=== PATIENT | female | born 1955 | race Caucasian/White ===

== ENCOUNTER 2022-05-03 06:24 | Observation (INO) ==
--- NOTE | 2022-03-18 11:46 | PAT Medication Instructions ---
Medication Instructions Date of Service March 18, 2022 Home Medications adalimumab 40 mg/0.8 mL subcutaneous pen kit (Humira Pen) 40 mg subcut UD aspirin 81 mg capsule 81 mg PO Q OTHER DAY celecoxib 200 mg capsule (Celebrex) 200 mg PO HS cholecalciferol (vitamin D3) 50 mcg (2,000 unit) tablet (Vitamin D3) 6,000 unit PO QAM clonazepam 0.5 mg tablet (Klonopin) 1 mg PO HS levothyroxine 75 mcg tablet 75 mcg PO QAM methylphenidate HCl 15 mg capsule,extended release (40-60) sprinkle 15 mg PO BID multivitamin 1 tab PO QAM omeprazole 20 mg capsule,delayed release 20 mg PO QAM simvastatin 10 mg tablet 10 mg PO HS sulfasalazine 500 mg tablet 2,000 mg PO BID venlafaxine 225 mg tablet,extended release 24 hr 225 mg PO QAM Continue as directed aspirin 81 mg capsule 81 mg PO Q OTHER DAY (unless directed otherwise by surg tiny) ASK your surgeon for instructions celecoxib 200 mg capsule (Celebrex) 200 mg PO HS ASK your prescriber and surgeon adalimumab 40 mg/0.8 mL subcutaneous pen kit (Humira Pen) 40 mg subcut UD sulfasalazine 500 mg tablet 2,000 mg PO BID DO NOT take the morning of surgery cholecalciferol (vitamin D3) 50 mcg (2,000 unit) tablet (Vitamin D3) 6,000 unit PO QAM methylphenidate HCl 15 mg capsule,extended release (40-60) sprinkle 15 mg PO BID multivitamin 1 tab PO QAM Take morning of surgery With a small sip of water, OTHERWISE NOTHING TO EAT OR DRINK AFTER MIDNIGHT: levothyroxine 75 mcg tablet 75 mcg PO QAM omeprazole 20 mg capsule,delayed release 20 mg PO QAM venlafaxine 225 mg tablet,extended release 24 hr 225 mg PO QAM Take evening before surgery clonazepam 0.5 mg tablet (Klonopin) 1 mg PO HS methylphenidate HCl 15 mg capsule,extended release (40-60) sprinkle 15 mg PO BID simvastatin 10 mg tablet 10 mg PO HS Other Notes If you have any questions please call us at [phone] or [phone] or [phone] or [phone]
--- NOTE | 2022-03-28 13:30 | Anesthesiology Consultation ---
Date of Service March 28, 2022 Assessment & Plan (1) Encounter for pre-operative examination: - Patient acceptable risk for surgery pending surgeon-ordered PCP preop evaluation (Dr. Vinnie Alexander/Lonny, scheduled 04/05). - COVID screening: Per assessment on 03/28: No known COVID-19 positive contacts or current COVID-19 related symptoms. Travel screen negative. Patient vaccinated. At surgeon discretion if preop Covid testing being done. - Outpatient joint assessment: Pt currently scheduled for inpatient pathway. If surgeon requests review for outpatient joint pathway, patient is acceptable candidate for outpatient joint program from anesthesia standpoint pending surgeon's office assessment of pt motivation/support/completion of same day joint program preop requirements. Chart Review Chart Review: Patient seen in Pre Admission Testing Teaching & Discussion Pre-Anesthesia Teaching/Discussion Notes: Instructed NPO after midnight before surgery,except medications with 15 cc of water. Medication instructions provided according to the PAT guidelines. History Surgery Operation Date: 05/03/22 07:15 Proposed Procedures p Left Total Knee Arthroplasty - Ad Parker DO Height/Weight Height: 5 ft 2 in Weight: 59.6 kg Allergies Allergy/AdvReac Type Severity Reaction Status Date / Time No Known Allergies Allergy Verified 03/18/22 10:48 Medications Home Medications Medication Instructions Recorded Confirmed Last Taken aspirin 81 mg capsule 81 mg PO Q OTHER DAY 03/18/22 03/18/22 Unknown celecoxib 200 mg capsule (Celebrex) 200 mg PO HS 03/18/22 03/18/22 Unknown cholecalciferol (vitamin D3) 50 6,000 unit PO QAM 03/18/22 03/18/22 Unknown mcg (2,000 unit) tablet (Vitamin D3) clonazepam 0.5 mg tablet (Klonopin) 1 mg PO HS 03/18/22 03/18/22 Unknown levothyroxine 75 mcg tablet 75 mcg PO QAM 03/18/22 03/18/22 Unknown methylphenidate HCl 15 mg 15 mg PO BID 03/18/22 03/18/22 Unknown capsule,extended release (40-60) sprinkle multivitamin 1 tab PO QAM 03/18/22 03/18/22 Unknown omeprazole 20 mg capsule,delayed 20 mg PO QAM 03/18/22 03/18/22 Unknown release simvastatin 10 mg tablet 10 mg PO HS 03/18/22 03/18/22 Unknown sulfasalazine 500 mg tablet 2,000 mg PO BID 03/18/22 03/18/22 Unknown venlafaxine 225 mg tablet,extended 225 mg PO QAM 03/18/22 03/18/22 Unknown release 24 hr Past Medical History Medical History Acid reflux Ankylosing spondylitis Possible (no evidence on recent MRI) Reason for sulfasalazine Anxiety Chronic back pain Depression History of COVID-19 Dx 08/16/21 (home test), mild symptoms at time > resolved Hyperlipidemia Hypothyroidism Ileostomy in place Osteoarthritis Exercise / Class Metabolic Activity II 4-5 Yardwork/Stairs/Walk up hill Past Family History Family History Other No family history of adverse response to anesthesia Past Surgical History Surgical History History of arthroscopy of left knee History of arthroscopy of right knee History of benign breast biopsy left History of carpal tunnel release of both wrists History of section x2 History of colonoscopy History of fusion of cervical spine ~2004 History of tonsillectomy and adenoidectomy History of tooth extraction all upper teeth removed History of total colectomy d/t accident (~2017) History of total hysterectomy with bilateral salpingo-oophorectomy (BSO) Nausea and vomiting after administration of anesthetic agent Status post biopsy of thyroid gland benign Status post ileostomy ~2018 Past Anesthesia History No Hx of Anesthesia Complications (except PONV) Son- "Belligerent" with anesthesia History of PONV No Hx of Motion Sickness and History of PONV Social History Smoking Status: Former smoker Do You Dip or Chew Tobacco: No Smoking End Date: Quit Hx Alcohol Use: Yes Alcohol type: other alcohol intake frequency: holidays/special occasions only Alcohol Intake Frequency Comment: "[place] just on vacation" Hx Substance Use: No substance use type: does not use Review of Systems Patient denies chest pain, shortness of breath, dyspnea on exertion, fever, chills, cough, wheezing. Hx palpitations. Physical Exam Vital Signs VITALS BP 119/75 P 74 TEMP 98.6 SP02 96%RA RESP 16 PHYSICAL Full cervical extension range of motion. Full TMJ range of motion. TMD 3.5 finger breaths Mallampati Score 1 Dentition: full upper dentures Lungs: clear throughout to auscultation Cardiac: regular rate and rhythm with occasional extra beat, no murmurs noted Spine: normal Carotid arteries: negative bruit Extremities: no edema Lab Results Anesthesia Preop Results Results Anesthesia Widget: WBC 7.67 K/ul (4.8-10.8) 03/28/22 Hgb 13.6 g/dl (12.0-16.0) 03/28/22 Hct 41.3 % (34.1-44.9) 03/28/22 Plt 325 K/uL (130-400) 03/28/22 Na 142 mmol/L (136-145) 03/28/22 K 4.3 mmol/L (3.5-5.1) 03/28/22 Cl 106 mmol/L (98-107) 03/28/22 CO2 30 mmol/L (21-32) 03/28/22 BUN 14 mg/dl (6-23) 03/28/22 Creat 0.66 mg/dl (0.6-1.2) 03/28/22 Glucose Level 89 mg/dl (70-99(Fasting)) 03/28/22 PT 10.7 Seconds (9.0-12.0) 03/28/22 PTT 23.7 Seconds (21.0-31.0) 03/28/22 INR 1.0 (0.9-1.1) 03/28/22 Urine Color Dark Yellow 03/28/22 Urine Appearance Clear (Clear) 03/28/22 Urine pH 5.5 (4.5-7.5) 03/28/22 Urine Specific [place] 1.017 (1.000-1.030) 03/28/22 Urine Protein Negative (Negative) 03/28/22 Urine Glucose (UA) Negative (Negative) 03/28/22 Urine Ketones Negative (Negative) 03/28/22 Urine Blood Negative (Negative) 03/28/22 Urine Nitrite Negative (Negative) 03/28/22 Urine Bilirubin Negative (Negative) 03/28/22 Urine Urobilinogen Negative (Negative) 03/28/22 Urine Leukocyte Esterase Negative (Negative) 03/28/22 Blood Type A Positive 03/28/22 Antibody Screen NEGATIVE 03/28/22 Testing Electrocardiogram Date: 03/28/22 NSR at 72bpm. Normal ECG. Chest X-Ray Date: 03/28/22 FINDINGS: Lung volumes are normal. No consolidation to suggest pneumonia. Linear left basilar density represents atelectasis or scarring. There is no pneumothorax or pleural effusion. Cardiac size is normal. Mediastinal contours are normal. There is no evidence for pulmonary edema. Postoperative findings within the cervical spine are incidentally noted. IMPRESSION: No acute cardiopulmonary findings. COVID-19 Risk Screen Screening Information COVID-19 Screen Date: 03/28/22 Exposure 21 Days Family/Household +COVID Last 21 Days: No Exposure 10 Days Any COVID Exposure Last 10 Days: No Symptoms Last 10 Days Experienced COVID Sx Last 10 Days: No + COVID 0-90 Days COVID + in Last 0-90 Days: No
--- NOTE | 2022-04-15 12:52 | History & Physical Report ---
Date of Service April 15, 2022 date of surgery: 05/03/22 Procedure: Left Total Knee Arthroplasty Surgeon: Ad Parker Assessment & Plan (1) Arthritis of knee, left: Plan: Risks and benefits of procedure discussed in detail today, patient would like to proceed with a left total knee replacement at [facility] as scheduled. will obtain medical clearance prior to surgery as well as obtain PATs at [facility]. Will place on ASA 81mg po bid x 1 month post op, f/u 2 weeks post op for routine post-operative care and x-ray, sooner if having any problems. will make arrangements for HHPT at the time of discharge. At this point in time, has failed conservative measures and would like to proceed with surgical intervention. The risks and benefits have been discussed including, but not limited to, risk of infection, nerve injury, stiffness, loss of motion, failure to improve, etc. Reasonable outcomes and options of treatment were discussed. An explanation of appropriate alternatives to the procedure that may be advantageous were discussed and their risks and benefits, as well as the risks and benefits of not proceeding with treatment. I offered to answer any additional inquiries concerning the treatment involved. All the patient's questions were answered. The patient is agreeable, understanding of the treatment plan and alternatives, and wishes to proceed with the treatment plan. History of Present Illness Chief Complaint: left knee pain Primary Care Provider: NO PCP Melody is a 66 year old female who complains of left knee pain, presents for pre-op evaluation prior to a left total knee replacement by Dr Parker at [facility]. she complains of pain, decreased range of motion, instability and stiffness in his left knee. Currently the patient states that the symptoms are moderate- severe. The pain is described as aching, sharp and throbbing. The symptoms occur continuously. The symptoms are aggravated by ascending stairs, daily activities, first steps while awake walking. Prior NSAIDs include Celebrex, IBU and Aleve. she has been treated with previous visco injections in the past without much relief. she has also tried medrol dose verenice. Allergies Allergy/AdvReac Type Severity Reaction Status Date / Time No Known Allergies Allergy Verified 03/18/22 10:48 Home Medications Medication Instructions Recorded Confirmed Type aspirin 81 mg capsule 81 mg PO Q OTHER DAY 03/18/22 03/18/22 History celecoxib 200 mg capsule (Celebrex) 200 mg PO HS 03/18/22 03/18/22 History cholecalciferol (vitamin D3) 50 6,000 unit PO QAM 03/18/22 03/18/22 History mcg (2,000 unit) tablet (Vitamin D3) clonazepam 0.5 mg tablet (Klonopin) 1 mg PO HS 03/18/22 03/18/22 History levothyroxine 75 mcg tablet 75 mcg PO QAM 03/18/22 03/18/22 History methylphenidate HCl 15 mg 15 mg PO BID 03/18/22 03/18/22 History capsule,extended release (40-60) sprinkle multivitamin 1 tab PO QAM 03/18/22 03/18/22 History omeprazole 20 mg capsule,delayed 20 mg PO QAM 03/18/22 03/18/22 History release simvastatin 10 mg tablet 10 mg PO HS 03/18/22 03/18/22 History sulfasalazine 500 mg tablet 2,000 mg PO BID 03/18/22 03/18/22 History venlafaxine 225 mg tablet,extended 225 mg PO QAM 03/18/22 03/18/22 History release 24 hr Past Med/Surg History Medical History Acid reflux Ankylosing spondylitis Possible (no evidence on recent MRI) Reason for sulfasalazine Anxiety Chronic back pain Depression History of COVID-19 Dx 08/16/21 (home test), mild symptoms at time > resolved Hyperlipidemia Hypothyroidism Ileostomy in place Osteoarthritis Surgical History History of arthroscopy of left knee History of arthroscopy of right knee History of benign breast biopsy left History of carpal tunnel release of both wrists History of section x2 History of colonoscopy History of fusion of cervical spine ~2004 History of tonsillectomy and adenoidectomy History of tooth extraction all upper teeth removed History of total colectomy d/t accident (~2017) History of total hysterectomy with bilateral salpingo-oophorectomy (BSO) Nausea and vomiting after administration of anesthetic agent Status post biopsy of thyroid gland benign Status post ileostomy ~2017 Family History Other No family history of adverse response to anesthesia Social History Smoking Status: Former smoker Second Hand Exposure: No; Hx Alcohol Use: Yes Alcohol type: other Hx Substance Use: No Preferred Language: [place]ib[place] Communication Ability: Effective 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 Beliefs That Will Affect Care: None Current Living Situation: Spouse Feels Safe at Home: Yes Assistive Devices: Denture - Upper and Glasses Review of Systems Review of Systems: All systems reviewed & are unremarkable except as noted in HPI & below Constitutional: no fever, no chills and no sweats Respiratory: no cough and no dyspnea Cardiovascular: no chest pain, no dyspnea and no orthopnea Gastrointestinal: no abdominal pain, no nausea and no vomiting Musculoskeletal: as per Subjective / HPI Physical Exam Constitutional: WD/WN, vitals as above no acute distress Respiratory: normal respiratory effort, lungs clear to auscultation no respiratory distress, no labored breathing and does not use accessory muscles Cardiovascular: RRR, no murmur, no edema Gastrointestinal (Abdomen): normal bowel sounds, soft, nontender, no hepatosplenomegaly Musculoskeletal: Knee: + knee abnormal to inspection (left knee), + effusion (+1 effusion), + limited ROM of knee (ROM 0/3/110), + knee ROM with crepitation, + joint line tenderness (medial joint line) and + Maira's sign positive; no deformity, no skin erythema, no ecchymosis, no valgus laxity, no varus laxity, anterior drawer test negative, Ham's sign negative and pivot shift test negative Results & Data Results & Data ([facility]) Diagnostic Findings Left Knee X-ray: left knee series confirm degenerative changes to the left knee, greatest medial compartments and patellofemoral joint, showing joint space narrowing, osteophyte formation and subchondral sclerosis. no acute bony pathology noted.
[~2022-05-03 06:24] MED LIST: ACETAMINOPHEN 500 MG TAB PO SCH; CeleBREX 200 MG CAP PO SCH; FAMOTIDINE 20 MG TAB PO SCH; GABAPENTIN 600 MG DOSE PO SCH; LR 500ML BOLUS, THEN 15ML/HR IV SCH; METOCLOPRAMIDE HCL 10 MG TABLET PO SCH; PROPOFOL IV EMULSION 10 MG/ML 20 ML VIAL IV ONE; ROPIVACAINE 0.5% HCL/PF 150 MG, BUPIVACAINE 0.75% MPF 20 ML, EPINEPHrine 30MG/30ML (OR ... INFIL SCH; TRANEXAMIC ACID 1,000 MG **IV Intra-op IV SCH; TRANEXAMIC ACID 1,000 MG **IV Pre-op IV SCH; ceFAZolin 1000MG 1,000 MG/7.5 ML SYR IV SCH; dexAMETHasone 4 MG TAB PO SCH
[2022-05-03] MEDS ORDERED: MEPIVACAINE HCL 1.5% 30 ML VIAL ONE (06:29)
[2022-05-03] MEDS ORDERED: EPINEPHrine INJ 1 MG/ML AMP ONE (06:29)
[2022-05-03] MEDS ORDERED: ROPIVACAINE 0.5% 5 MG/ML 30 ML VIAL ONE (06:29)
--- NOTE | 2022-05-03 07:18 | History & Physical Bridge Note ---
Date of Service May 03, 2022 History & Physical Bridge Note I have examined the patient, reviewed the History & Physical and in the interval since the performance of the History & Physical I have noted the following changes of clinical significance: no changes noted
[2022-05-03] MEDS ORDERED: fentaNYL citrate 100 MCG/2 ML VIAL ONE ×2 (07:19→08:36)
[2022-05-03] MEDS ORDERED: fentaNYL citrate 100 MCG/2 ML VIAL IV PRN (07:19)
[2022-05-03] MEDS ORDERED: MEPERIDINE HCL 25 MG/ML CARP/VIAL IV PRN (07:19)
[2022-05-03] MEDS ORDERED: ePHEDrine sulfate 50 MG/ML AMP IV PRN (07:19)
[2022-05-03] MEDS ORDERED: LABETALOL HCL IV 5 MG/ML 20ML IV PRN (07:19)
[2022-05-03] MEDS ORDERED: ONDANSETRON INJ 2 MG/ML 2 ML VIAL IV PRN ×3 (07:19→15:23)
[2022-05-03] MEDS ORDERED: ATROPINE SULFATE 0.1 MG/ML 10ML SYR IV PRN (07:19)
[2022-05-03] MEDS ORDERED: HYDROmorphone INJ 1 MG/ML SYRINGE IV PRN (07:19)
[2022-05-03] MEDS ORDERED: PHENYLEPHRINE 100MCG/ML 5ML SYR IV PRN (07:19)
[2022-05-03] MEDS ORDERED: MIDAZOLAM HCL 1 MG/ML 2ML VIAL ONE (07:19)
[2022-05-03] MEDS ORDERED: PROPOFOL IV EMULSION 10 MG/ML 100 ML VIAL IV ONE (07:25)
[2022-05-03] MEDS ORDERED: ORTHO JOINT ANESTHETIC ONE (08:24)
[2022-05-03] MEDS ORDERED: DEXAMETHASONE SOD INJ 4 MG/ML VIAL ONE (08:34)
[2022-05-03] MEDS ORDERED: ONDANSETRON INJ 2 MG/ML 2 ML VIAL ONE (08:34)
[2022-05-03] MEDS ORDERED: KETAMINE 50 MG/5 ML SYRINGE ONE (08:35)
--- NOTE | 2022-05-03 09:31 | Operative Report ---
Post Operative Report Pre & Post Diagnosis Operation Date: 05/03/22 08:25 Pre-Op Diagnosis: Arthritis of left knee Post-Op Diagnosis: Arthritis of left knee I identified the patient and participated in the time-out.: Yes Procedure Operation Date: 05/03/22 08:25 Actual Procedures p Left Total Knee Arthroplasty(Left) utilizing [employer] 2 patient matched total knee arthroplasty size femur for left tibia 3 left poly-10 mm patella 32 deysi- Ad Parker DO Surgeon Ad Parker DO Mailing Specialist Bruno DIXON Estimated Blood Loss 5 Findings Consistent with Post-Op Diagnosis Patient presents with severe end-stage tricompartmental degenerative joint disease left knee no response to conservative management patient has eburnated [id number] subchondral cystic changes marginal osteophytes varus alignment flexion contracture moderate to large effusion Specimens Bone and cartilage Drains Medium bore Hemovac Anesthesia Type MAC Spinal Regional Complications none Disposition Accompanied Patient To Recovery: No Disposition: Recovery Room Indications Patient presents with severe end-stage DJD failed attempted conservative management clinic physical therapy anti-inflammatories relative rest activity modification corticosteroid injection viscosupplementation the above intraoperative findings were noted Description of Procedure After proper prepping and draping of the left lower extremity anterior midline incision was made over the region of the extensor extensor mechanism after meticulous hemostasis was obtained and maintained in subcutaneous tissues a medial parapatellar incision was made The patella was subluxed lateralward the medial lateral gutter were cleaned from any hypertrophic synovitis and scar tissue of the distal femoral block was placed and the distal femoral osteotomy cut was made subsequently the chamfers anterior and posterior osteotomy cuts were made utilizing the 4-in-1 block the tibia was subsequently subluxed anteriorward medial and ateral meniscal remnants were excised in their entirety remnants of the anterior and posterior cruciate ligaments were excised in their entirety excellent exposure of the proximal tibia was obtained the tibial osteotomy guide was placed on the proximal tibial osteotomy cut was made once again the knee was irrigated with copious amounts of sterile saline solution the patella was subsequently everted lateralward thickened scar tissue around the patella was removed the patella was subsequently cut utilizing a freehand technique and was drilled prepared for final preparation and placement of patella socially flexion-extension gaps were checked and the equal and symmetric trials were placed to the appropriate femoral and tibial trials with poly-spacer being placed for equal flexion and extension gaps and full range of motion including extension to 0 and flexion to 140 the trial components after having been taken to recovery range of motion was subsequently removed meticulous hemostasis was obtained and maintained subsequently a knee block injection of joint cocktail including ropivacaine 0.5% 150 mg. Bupivacaine 0.5% epinephrine 1-200,030 mL's toradol 30 mg dexamethasone 4 mg ketamine 10 mg clonidine 100 micrograms normal saline solution 30 mg was infiltrated into the soft tissues of the posterior knee medial lateral gutters and periosteal synovium special attention was paid to protect neurovascular structures at all times subsequently trial components having been removed the knee was irrigated with sterile saline solution. debris was removed the proximal tibia was subsequently prepared and was made ready for the placement of the tibial component tibial component was also cemented and tamped into position the femoral component was subsequently placed and cemented in the position the patellar component was subsequently cemented in position because hemostasis once again obtained and maintained wound having been thoroughly irrigated with debridement and debridement lavage was performed as well as a medial parapatellar incision closed with #1 Vicryl in interrupted fashion subcutaneous was closed with #2 Vicryl skin was closed with skin clips. PA-C was necessary for prepping and drapping as well as wound closure of deep fascia Sub cutaneous tissue and skin and was necessary for the case. A sterile compressive dressing was placed patient was taken to recovery in stable condition of report dictated by Keith I attest to the content of the Intraoperative Record and any orders documented therein. Any exceptions are noted below.Due to the complex nature of the procedure, the entire surgery was performed with the operational assistance of Bruno DIXON. The data analysis assistant, under direct supervision, was involved in the actual performance of all aspects of the surgical procedure including hemostasis, tissue retraction and incision, instrument management, patient positioning, and wound closure. I attest to the content of the Intraoperative Record and any orders documented therein. Any exceptions are noted below.
[2022-05-03] MEDS ORDERED: oxyCODONE HCL IR 5 MG TAB (IMMEDIATE RELEASE) PO PRN (10:10)
[2022-05-03] MEDS ORDERED: HYDROmorphone INJ 0.5 MG/0.5 ML SYR IV PRN ×2 (10:10→15:23)
[2022-05-03] MEDS ORDERED: METOPROLOL TARTRATE 1 MG/ML VIAL IV ONE (10:37)
--- NOTE | 2022-05-03 10:37 | XRay Report ---
TWO VIEWS LEFT KNEE CLINICAL HISTORY: Postoperative examination. FINDINGS: AP and crosstable lateral portable views of the left knee are obtained. A left knee arthrop lasty is in near anatomic alignment. There has been undersurface remodeling of the patella. No acute fracture is seen. There are expected postoperative changes around the knee including a surgical drain , soft tissue edema, and subcutaneous gas. IMPRESSION: Expected postoperative changes status post left knee arthroplasty. No acute fracture is s een. ACT 112: Negative or not required by law. Electronically signed by: Phil Ross M.D. 05/03/2022 10:36 AM
[2022-05-03] MEDS ORDERED: METOPROLOL TARTRATE 1 MG/ML VIAL IV STA (10:38)
--- NOTE | 2022-05-03 11:20 | Anesthesiology Progress Note ---
Date of Service May 03, 2022 Anesthesia Post Procedure Vital Signs Vital Signs: Temp Pulse Pulse Pulse Resp BP BP 05/03/22 11:10 37.0 C 82 20 128/74 05/03/22 11:00 92 H 22 122/70 05/03/22 10:50 85 24 133/84 05/03/22 10:40 112 H 141/81 H 05/03/22 10:40 112 H 19 141/81 H 05/03/22 10:30 116 H 17 141/83 H 05/03/22 10:20 109 H 16 136/82 05/03/22 10:13 36.2 C L 110 H 12 132/77 05/03/22 07:10 37.4 C 05/03/22 06:58 37.8 C H 80 18 142/83 H Pulse Ox O2 Del Method O2 Flow Rate 05/03/22 11:10 94 Nasal Cannula 3 05/03/22 11:00 96 Nasal Cannula 3 05/03/22 10:50 97 Oxymask 5 05/03/22 10:40 05/03/22 10:40 94 Oxymask 5 05/03/22 10:30 91 Oxymask 5 05/03/22 10:20 94 Oxymask 5 05/03/22 10:13 95 Oxymask 5 05/03/22 07:10 05/03/22 06:58 96 Room Air Pain Intensity Right Knee: Pain Intensity: 2 Transfer of Care Handoff Completed per policy Notes Mental Status: alert / awake / arousable Patient Amnestic to Procedure: Yes Nausea / Vomiting: adequately controlled Pain: adequately controlled Airway Patency, RR, SpO2: stable & adequate BP & HR: stable & adequate Hydration State: stable & adequate Anesthetic Complications: no major complications apparent and Pt Satisfied with anesthetic care
[2022-05-03] MEDS: oxyCODONE HCL IR 5 MG TAB (IMMEDIATE RELEASE) PO PRN ×2 (12:03→21:39)
[2022-05-03] MEDS ORDERED: DROPERIDOL 5 MG/2 ML VIAL IV STA (14:39)
[2022-05-03] MEDS ORDERED: diphenhydrAMINE 50 MG/ML VIAL IV PRN (15:23)
[2022-05-03] MEDS ORDERED: bisacodyL 10 MG SUPP PR PRN (15:23)
[2022-05-03] MEDS ORDERED: NALOXONE HCL 0.4 MG/1 ML VIAL/CARP IV PRN (15:23)
[2022-05-03] MEDS ORDERED: MAGNESIUM HYDROXIDE SUSP 30 ML UDC PO PRN (15:23)
[2022-05-03] MEDS: SODIUM CHLORIDE 0.9% 1000ML 1,000 ML IV SCH (18:28)
--- NOTE | 2022-05-03 18:37 | Hospitalist Consultation ---
Date of Consultation May 03, 2022 Assessment & Plan (1) Status post total left knee replacement: -Patient is currently afebrile, hemodynamically stable, and stable on RA -Antibiotics, pain control, DVT PPX, and IV fluids per primary team -Agree with AM CBC and BMP (2) Nausea: -Patient currently nauseous and with poor ostomy output, hypoactive bowel sounds -Will get STAT KUB to rule out obstruction -PRN zofran already ordered (3) Ileostomy in place: -WIll FU with KUB (4) Hypothyroidism: -Continue Levothyroxine (5) Hyperlipidemia: -Continue Statin (6) Depression: -Continue venlafaxine and Ritalin (7) Anxiety: -Contique Venlafaxine and Klonopin prn (8) Ankylosing spondylitis: -Will continue holding Sulfasalazine for now to prevent infection with immunosuppression (9) Acid reflux: -Ordered home omeprazole -Continue famotidine for GI ulcer prophylaxis Plan The patient was discussed with Dr. Lynch at the time of the Consult Supervising Physician Co-Signing Physician Notes I personally saw and examined the patient. I verified all herrera points and agree with Og Islas PA-C with the following exceptions and/or additions: 67 year old female POD#0 left TKA. EBL 5ml. No complications. O/E HS1+2, no murmurs, Chest CTAB, Abdo SNT, ostomy now working A/P Routine medications reviewed with patient and no changes recommended from above. History of Present Illness Reason for Consultation: Post-op medical management Requesting Physician: Ad Parker DO Attending Physician: Dr. Brandon Lynch History of Present Illness Melody is a 67 year old female with a PMH significant for Hypothyroidism, ankylosing spondylitis (on Sulfasalazine), S/P Ileostomy status, hyperlipidemia, GERD, depression and anxiety who presented to the [facility] on 05/03/22 for Left Total Knee Arthroplasty with Dr. Parker. Per the post-op note EBL was approximately 5 cc, anesthesia was listed as [facility], and no intraoperative complications were listed. At the time of the exam the patient was sitting up in bed in no acute distress. She states that she is feeling nauseous even prior to trying to eat dinner. She states that the last time she ate was yesterday, she has not had good ostomy output today. She has not yet vomited but feels as though she may soon. She often gets nauseous when she doesn't eat and also says that anesthesia makes her nauseous as well. She denies recent fevers or chills but states she is feeling hot. Denies chest pain, SOB, abdominal pain, dysuria, hematuria, and recent falls. Her left leg pain is currently well-controlled. When asked, she states that she was put on Ritalin but here PCP for her depression to try and motivate her to be more active and have more energy. Her last dose of sulfasalazine was last week as per instructions by the surgery team. Allergies Allergy/AdvReac Type Severity Reaction Status Date / Time No Known Allergies Allergy Verified 05/03/22 06:54 Home Medications Medication Instructions Recorded Confirmed Type celecoxib 200 mg capsule (Celebrex) 200 mg PO HS 03/18/22 05/03/22 History cholecalciferol (vitamin D3) 50 6,000 unit PO QAM 03/18/22 05/03/22 History mcg (2,000 unit) tablet (Vitamin D3) clonazepam 0.5 mg tablet (Klonopin) 1 mg PO HS 03/18/22 05/03/22 History levothyroxine 75 mcg tablet 75 mcg PO QAM 03/18/22 05/03/22 History methylphenidate HCl 15 mg 15 mg PO BID 03/18/22 05/03/22 History capsule,extended release (40-60) sprinkle multivitamin 1 tab PO QAM 03/18/22 05/03/22 History omeprazole 20 mg capsule,delayed 20 mg PO QAM 03/18/22 05/03/22 History release simvastatin 10 mg tablet 10 mg PO HS 03/18/22 05/03/22 History sulfasalazine 500 mg tablet 2,000 mg PO BID 03/18/22 05/03/22 History venlafaxine 225 mg tablet,extended 225 mg PO QAM 03/18/22 05/03/22 History release 24 hr Patient History Medical History (Updated 05/03/22 @ 18:58 by Og Islas PA-C) Acid reflux Ankylosing spondylitis Possible (no evidence on recent MRI) Reason for sulfasalazine Anxiety Chronic back pain Depression History of COVID-19 Dx 1/31/22 (home test), mild symptoms at time > resolved Hyperlipidemia Hypothyroidism Ileostomy in place Osteoarthritis Surgical History (Updated 05/03/22 @ 18:58 by Og Islas PA-C) History of arthroscopy of left knee History of arthroscopy of right knee History of benign breast biopsy left History of carpal tunnel release of both wrists History of section x2 History of colonoscopy History of fusion of cervical spine ~2004 History of tonsillectomy and adenoidectomy History of tooth extraction all upper teeth removed History of total colectomy d/t accident (~2018) History of total hysterectomy with bilateral salpingo-oophorectomy (BSO) Nausea and vomiting after administration of anesthetic agent Status post biopsy of thyroid gland benign Status post ileostomy ~2018 Family History Other No family history of adverse response to anesthesia Social History Smoking Status: Former smoker Smoking End Date: Quit ; Second Hand Exposure: No; Do You Dip or Chew Tobacco: No; Tobacco Cessation Education Requested by Patient: No Hx Alcohol Use: Yes Alcohol type: other Hx Substance Use: No Preferred Language: Macedonian Communication Ability: Effective Silverware Buffer Required: No Beliefs That Will Affect Care: None Current Living Situation: Spouse Other Information That Helps Us Care for You: No Feels Safe at Home: Yes Safety Concerns: Feels Safe At This Time Assistive Devices: Walker Review of Systems Review of Systems: Denies current fever, chills, headache, changes in vision, hearing, taste, and smell, chest pain, SOB, cough, abdominal pain, vomiting, diarrhea, hematemesis, melena, dysuria, hematuria, and recent falls. All systems have been reviewed and are otherwise negative. Physical Exam Physical Exam: Physical Exam: General: In no acute distress, stated age, well-nourished, good hygiene HEENT: Normocephalic, atraumatic, no scleral icterus, pupils around round, symmetrical, and reactive to light, moist mucus membranes, trachea midline, no thyromegaly Chest/Pulm: No respiratory distress, symmetrical chest expansion, clear breath sounds throughout Cardiac: RRR, no murmurs noted Abdomen: Negative for ascites and bruising, Ostomy bag in place and without current drainage or gas, hypoactive bowel sounds, soft, non-tender to palpation throughout Musculoskeletal: Patiet with left lower extremity currently wrapped and without signs of drainage, drain in place and without signs of infected drainage, patient with intact sensation and motor function in the LE's. Extremities: Radial, dorsalis pedis, and posterior tibial pulses are intact and symmetrical, no edema noted in the LE's Skin: Warm, dry, no rashes , lesions, or scars noted Neuro: Alert and oriented to person, place, month, year, and president, no focal defects, CN II-XII tested and intact, no tremors noted Psych: No acute distress, calm and cooperative during the exam Results & Data Results & Data ([facility]) Vital Signs (Past 12 Hours) Vital Signs Temp Pulse Pulse Pulse Resp BP BP 05/03/22 18:27 36.6 C 77 18 100/63 05/03/22 17:50 70 17 96/65 L 05/03/22 17:05 74 16 103/61 05/03/22 18:00 36.9 C 77 18 101/63 05/03/22 18:00 05/03/22 16:05 71 18 104/65 05/03/22 15:05 36.8 C 68 19 108/65 05/03/22 14:35 85 18 129/80 05/03/22 14:45 05/03/22 14:10 88 20 124/68 05/03/22 13:10 83 20 118/85 05/03/22 12:40 81 19 130/85 05/03/22 12:10 84 18 126/75 05/03/22 11:33 37.1 C 88 18 120/74 05/03/22 11:20 81 18 122/77 05/03/22 11:10 37.0 C 82 20 128/74 05/03/22 11:00 92 H 22 122/70 05/03/22 10:50 85 24 133/84 05/03/22 10:40 112 H 141/81 H 05/03/22 10:40 112 H 19 141/81 H 05/03/22 10:30 116 H 17 141/83 H 05/03/22 10:20 109 H 16 136/82 05/03/22 10:13 36.2 C L 110 H 12 132/77 05/03/22 07:10 37.4 C 05/03/22 06:58 37.8 C H 80 18 142/83 H Pulse Ox O2 Del Method O2 Flow Rate 05/03/22 18:27 90 Room Air 05/03/22 17:50 96 Room Air, Nasal Cannula 05/03/22 17:05 97 Room Air 05/03/22 18:00 98 Nasal Cannula 2 05/03/22 18:00 Nasal Cannula 2 05/03/22 16:05 97 Room Air 05/03/22 15:05 98 Room Air 05/03/22 14:35 96 Room Air 05/03/22 14:45 97 0 05/03/22 14:10 98 Room Air 05/03/22 13:10 98 Room Air 05/03/22 12:40 98 Room Air 05/03/22 12:10 96 Room Air 05/03/22 11:33 97 Room Air 05/03/22 11:20 95 Nasal Cannula 3 05/03/22 11:10 94 Nasal Cannula 3 05/03/22 11:00 96 Nasal Cannula 3 05/03/22 10:50 97 Oxymask 5 05/03/22 10:40 05/03/22 10:40 94 Oxymask 5 05/03/22 10:30 91 Oxymask 5 05/03/22 10:20 94 Oxymask 5 05/03/22 10:13 95 Oxymask 5 05/03/22 07:10 05/03/22 06:58 96 Room Air Diagnostic Findings Knee X-Ray 05/03/22 10:13 TWO VIEWS LEFT KNEE CLINICAL HISTORY: Postoperative examination. FINDINGS: AP and crosstable lateral portable views of the left knee are obtained. A left knee arthroplasty is in near anatomic alignment. There has been undersurface remodeling of the patella. No acute fracture is seen. There are ex pected postoperative changes around the knee including a surgical drain, soft tissue edema, and subcutaneous gas. IMPRESSION: Expected postoperative changes status post left knee arthroplasty. No acute fracture is seen. ACT 112: Negative or not required by law. Electronically signed by: Phil Ross M.D. 05/03/2022 10:36 AM ECG Additional Comments: No ECG available at the time of the consult PG Care Time/CCT Total # of Minutes Spent Total Time Spent with Patient: Total time spent is greater than 50% in coordination of care (as documented) at patient's floor/unit and/or counseling patient: Coding [place] [address] Office/OBS Consult Lvl 3 Patient Type Established Medical Decision Making Moderate Complexity Diagnoses Status post total left knee replacement Z96.652 Nausea R11.[address] Z93.2 Hypothyroidism E03.9 Hyperlipidemia E78.5 Depression F32.A Anxiety F41.9 Ankylosing spondylitis M45.9 Acid reflux K21.9
--- NOTE | 2022-05-03 20:15 | XRay Report ---
KUB HISTORY: Generalized abdominal pain and distention. concern for obstruction COMPARISON: None. FINDINGS: There are surgical clips seen within the midabdomen with a right lower quadrant ostomy. No dilated loops of small or large bowel to suggest an obstruction. No renal calculi. No ureteral calcu li. Calcifications in the deep pelvis likely represent phleboliths. There is mild gaseous distention of the stomach. The lung bases appear clear. No pneumoperitoneum or pneumatosis. IMPRESSION: 1. Mild gaseous distention of the stomach. 2. No dilated loops of small or large bowel to suggest an obstruction. ACT 112: Negative or not required by law. Electronically signed by: José Pitt M.D. 05/03/2022 8:14 PM
[2022-05-03] MEDS ORDERED: SIMVASTATIN 10 MG TAB PO SCH (21:00)
[2022-05-03] MEDS ORDERED: clonazePAM 1 MG TAB PO SCH (21:00)
[2022-05-03] MEDS ORDERED: SENNA 8.6 MG TAB PO SCH (21:00)
[2022-05-03] MEDS: DOCUSATE SODIUM 100 MG CAP PO SCH (21:42)
[2022-05-03] MEDS: ASPIRIN 81 MG ECTAB PO SCH (21:43)
[2022-05-03] MEDS: ACETAMINOPHEN 500 MG TAB PO SCH (21:43)
[2022-05-03] MEDS: ceFAZolin 1000MG 1,000 MG/7.5 ML SYR IV SCH (22:15)
[2022-05-04] MEDS: SODIUM CHLORIDE 0.9% 1000ML 1,000 ML IV SCH (00:53)
[2022-05-04] MEDS: oxyCODONE HCL IR 5 MG TAB (IMMEDIATE RELEASE) PO PRN (04:38)
[2022-05-04] MEDS: ACETAMINOPHEN 500 MG TAB PO SCH (05:08)
[2022-05-04] MEDS: ceFAZolin 1000MG 1,000 MG/7.5 ML SYR IV SCH (05:08)
[2022-05-04 07:18] LABS: Hematocrit (blood only) 31.5 % (34.1-44.9); Hemoglobin 10.5 g/dl (12.0-16.0); Mean Corpuscular Hemoglobin 29.1 pg (25.0-34.0); Mean Corpuscular Hgb Conc 33.3 g/dL (32.0-36.0); Mean Corpuscular Volume 87.3 fL (80.0-100.0); Mean Platelet Volume 8.8 fL (9.4-12.3); Platelet Count 257 K/uL (130-400); RDW Coefficient of Variation 11.9 % (11.5-14.5); RDW Standard Deviation 38.5 fL (36.4-46.3); Red Blood Count 3.61 M/uL (3.93-5.22); White Blood Count 16.13 K/ul (4.8-10.8)
[2022-05-04 07:41] LABS: BUN Creatinine Ratio 19.1 (10-20); Calcium 8.5 mg/dl (8.5-10.1); Creatinine Clr Calc Pharmacy 65.2 ml/min; Est GFR (African American) 106.4 ml/min; Est GFR (Non-African American) 91.8 ml/min; Potassium 3.5 mmol/L (3.5-5.1)
[2022-05-04] MEDS: ASPIRIN 81 MG ECTAB PO SCH (08:45)
[2022-05-04] MEDS: DOCUSATE SODIUM 100 MG CAP PO SCH (08:46)
[2022-05-04] MEDS ORDERED: MULTIVITAMIN TAB PO SCH (09:00)
[2022-05-04] MEDS ORDERED: NON-FORMULARY MEDICATION (Multivitamin Tablet) PO SCH (09:00)
[2022-05-04] MEDS ORDERED: LEVOTHYROXINE SODIUM 75 MCG TABLET PO SCH (09:00)
[2022-05-04] MEDS ORDERED: PANTOprazole 40 MG TAB PO SCH (09:00)
[2022-05-04] MEDS ORDERED: VENLAFAXINE HCL XR 75 MG CAPXR PO SCH (09:00)
[2022-05-04] MEDS ORDERED: CHOLECALCIFEROL 1,000 UNITS 25 MCG TAB PO SCH (09:00)
--- NOTE | 2022-05-04 11:14 | Hospitalist Progress Note ---
Date of Service May 04, 2022 Assessment & Plan (1) Status post total left knee replacement: Plan: POD#1 p Left Total Knee Arthroplasty(Left) utilizing [employer] 2 patient matched total knee arthroplasty size femur for left tibia 3 left poly-10 mm patella 32 deysi- Ad Parker, DO on 05/03 EBL 5 Drain output 400cc H/h 13.6/41.3 --> 10.5/31.5, acute blood loss anemia from surgery/hemovac drainage, as well as expected drop from dilutional effect from IVF Had nausea post-op, decreased ostomy output Stat KUB without obstruction, now having increased ostomy output, no further nausea Pain control/bowel regimen/PT/OT per primary service ASA 81mg BID for DVT prophylaxis Plans for d/c later today per patient/primary service Nausea: Improved, likely from anesthesia KUB without obstruction antiemetics prn Ileostomy in place: Working, KUB without obstruction (patient states never had one in the past) Hypothyroidism: Continue Levothyroxine Hyperlipidemia: Continue Statin Depression: Continue venlafaxine and Ritalin Anxiety: -Contique Venlafaxine and Klonopin prn Ankylosing spondylitis: -Will continue holding Sulfasalazine for now to prevent infection with immunosuppression Acid reflux: -Ordered home omeprazole -Continue famotidine for GI ulcer prophylaxis (2) Nausea: (3) Ileostomy in place: (4) Hypothyroidism: (5) Hyperlipidemia: (6) Depression: (7) Anxiety: (8) Ankylosing spondylitis: (9) Acid reflux: Plan Thank you for allowing hospitalist to participate in the care of Ms Rodriguez. Will sign off at this time. please call with any questions/concerns Admission and Anticipated Discharge Date Admission Date: May 03, 2022 Subjective Patient evaluated this morning, at bedside. Doing well, pain controlled. Drain with bloody drainage and wondering when this will be removed -- per ortho either later today or with home health pending. No further nausea. Discussed scopalamine patch, she states she told OR prior to surgery but didn't get but would be helpful in future. Ostomy with increased output. Patient hopeful for d/c soon as lives in [facility] and not wanting to drive in dark. Review of Systems Review of Systems: All systems reviewed & are unremarkable except as noted in HPI & below Physical Exam Physical Exam: Physical Exam: General: WD/WN female sitting up in chair, at bedside HEENT: head normocephalic, atraumatic, trachea midline, mmm Resp: CTAB, no w/c/r, on room air 97% CV: RRR, no m/r/g GI:+BS, ostomy intact with drainage present MSK/Neuro: moves all extremities, no focaL DEFICIT, pulses palpable, no calf tenderness, ice pack and joanna wrap in place Psych: AOX3, pleasant and cooperative Results & Data Results & Data ([facility]) Vital Signs (Past 12 Hours) Vital Signs Temp Pulse Pulse Resp BP Pulse Ox O2 Del Method 05/04/22 07:29 36.8 C 85 17 105/63 100 Nasal Cannula 05/04/22 03:48 36.9 C 80 16 98/59 L 98 Nasal Cannula 05/04/22 00:20 36.6 C 84 16 100/64 98 Nasal Cannula O2 Flow Rate 05/04/22 07:29 2 05/04/22 03:48 2 05/04/22 00:20 2 Laboratory Results 05/04/22 05/04/22 Range/Units 06:56 06:56 WBC 16.13 H (4.8-10.8) K/ul RBC 3.61 L (3.93-5.22) M/uL Hgb 10.5 L (12.0-16.0) g/dl Hct 31.5 L (34.1-44.9) % MCV 87.3 (80.0-100.0) fL MCH 29.1 (25.0-34.0) pg MCHC 33.3 (32.0-36.0) g/dL RDW Std Deviation 38.5 (36.4-46.3) fL RDW Coeff of Alexa 11.9 (11.5-14.5) % Plt Count 257 (130-400) K/uL MPV 8.8 L (9.4-12.3) fL Sodium 137 (136-145) mmol/L Potassium 3.5 (3.5-5.1) mmol/L Chloride 103 (98-107) mmol/L Carbon Dioxide 29 (21-32) mmol/L Anion Gap 5 (3-11) BUN 13 (6-23) mg/dl Creatinine 0.68 (0.6-1.2) mg/dl Est Cr Clr Drug Dosing 65.2 ml/min Est GFR ( Amer) 106.4 ml/min Est GFR (Non-Af Amer) 91.8 ml/min BUN/Creatinine Ratio 19.1 (10-20) Glucose 152 H (70-99(Fasting)) mg/dl Calcium 8.5 (8.5-10.1) mg/dl PG Care Time/CCT Total # of Minutes Spent Total Time Spent with Patient: Total time spent is greater than 50% in coordination of care (as documented) at patient's floor/unit and/or counseling patient: Coding Level of Care Code 34091 Subseq Obs Care Lvl 1 Diagnoses Status post total left knee replacement Z96.652 Nausea R11.[address] Z93.2 Hypothyroidism E03.9 Hyperlipidemia E78.5 Depression F32.A Anxiety F41.9 Ankylosing spondylitis M45.9 Acid reflux K21.9
--- NOTE | 2022-05-04 14:38 | Orthopedic Progress Note ---
Date of Service May 04, 2022 Assessment & Plan (1) Arthritis of knee, left: Plan: Postop day 1 status post left total knee arthroplasty PT/OT protocols. Weightbearing as tolerated. DVT prophylaxis-aspirin p.o. twice daily, SCDs, YOVANY baldwin. Pain management as written. DC planning-patient is planning for home health services upon discharge. Patient progressed well with her physical therapy. Vital signs remaining stable. Plan for discharge to home today. Admission and Anticipated Discharge Date Admission Date: May 03, 2022 Subjective Postop day 1 Patient lying in bed awake and alert. No complaints this morning. Pain is controlled. Denies shortness of breath, chest pain, lightheadedness. Physical Exam Physical Exam: Dressings clean, dry, and intact. Calves are soft and nontender. Neurovascular is intact. Toes are mobile. She has good dorsiflexion and plantarflexion of the foot. Results & Data ([facility]) Vital Signs (Past 12 Hours) Vital Signs Temp Pulse Pulse Resp BP Pulse Ox O2 Del Method 05/04/22 11:50 37 C 70 85 18 108/64 97 05/04/22 11:11 37 C 70 18 108/64 97 Room Air 05/04/22 07:29 36.8 C 85 17 105/63 100 Nasal Cannula 05/04/22 03:48 36.9 C 80 16 98/59 L 98 Nasal Cannula O2 Flow Rate 05/04/22 11:50 05/04/22 11:11 05/04/22 07:29 2 05/04/22 03:48 2 Laboratory Results Laboratory Results WBC 16.13 K/ul (4.8-10.8) H 05/04/22 06:56 RBC 3.61 M/uL (3.93-5.22) L 05/04/22 06:56 Hgb 10.5 g/dl (12.0-16.0) L 05/04/22 06:56 Hct 31.5 % (34.1-44.9) L 05/04/22 06:56 MCV 87.3 fL (80.0-100.0) 05/04/22 06:56 MCH 29.1 pg (25.0-34.0) 05/04/22 06:56 MCHC 33.3 g/dL (32.0-36.0) 05/04/22 06:56 RDW Std Deviation 38.5 fL (36.4-46.3) 05/04/22 06:56 RDW Coeff of Alexa 11.9 % (11.5-14.5) 05/04/22 06:56 Plt Count 257 K/uL (130-400) 05/04/22 06:56 MPV 8.8 fL (9.4-12.3) L 05/04/22 06:56 Sodium 137 mmol/L (136-145) 05/04/22 06:56 Potassium 3.5 mmol/L (3.5-5.1) 05/04/22 06:56 Chloride 103 mmol/L (98-107) 05/04/22 06:56 Carbon Dioxide 29 mmol/L (21-32) 05/04/22 06:56 Anion Gap 5 (3-11) 05/04/22 06:56 BUN 13 mg/dl (6-23) 05/04/22 06:56 Creatinine 0.68 mg/dl (0.6-1.2) 05/04/22 06:56 Est Cr Clr Drug Dosing 65.2 ml/min 05/04/22 06:56 Est GFR ( Amer) 106.4 ml/min 05/04/22 06:56 Est GFR (Non-Af Amer) 91.8 ml/min 05/04/22 06:56 BUN/Creatinine Ratio 19.1 (10-20) 05/04/22 06:56 Glucose 152 mg/dl (70-99(Fasting)) H 05/04/22 06:56 Calcium 8.5 mg/dl (8.5-10.1) 05/04/22 06:56 Impressions Knee X-Ray 05/03/22 10:13 TWO VIEWS LEFT KNEE CLINICAL HISTORY: Postoperative examination. FINDINGS: AP and crosstable lateral portable views of the left knee are obtained. A left knee arthroplasty is in near anatomic alignment. There has been undersurface remodeling of the patella. No acute fracture is seen. There are expected postoperative changes around the knee including a surgical drain, soft tissue edema, and subcutaneous gas. IMPRESSION: Expected postoperative changes status post left knee arthroplasty. No acute fracture is seen. ACT 112: Negative or not required by law. Electronically signed by: Phil Ross M.D. 05/03/2022 10:36 AM
--- NOTE | 2022-05-04 14:51 | Discharge Summary ---
Date of Service May 04, 2022 Admission HPI Per Admitting Provider Shanon is a 66 year old female who complains of left knee pain, presents for pre-op evaluation prior to a left total knee replacement by Dr Parker at [facility]. she complains of pain, decreased range of motion, instability and stiffness in his left knee. Currently the patient states that the symptoms are moderate- severe. The pain is described as aching, sharp and throbbing. The symptoms occur continuously. The symptoms are aggravated by ascending stairs, daily activities, first steps while awake walking. Prior NSAIDs include Celebrex, IBU and Aleve. she has been treated with previous visco injections in the past without much relief. she has also tried medrol dose verenice. Admission Exam Per Admitting Provider Physical Exam Constitutional: WD/WN, vitals as above no acute distress Respiratory: normal respiratory effort, lungs clear to auscultation no respiratory distress, no labored breathing and does not use accessory muscles Cardiovascular: RRR, no murmur, no edema Gastrointestinal (Abdomen): normal bowel sounds, soft, nontender, no hepatosplenomegaly Musculoskeletal: Knee: + knee abnormal to inspection (left knee), + effusion (+1 effusion), + limited ROM of knee (ROM 0/3/110), + knee ROM with crepitation, + joint line tenderness (medial joint line) and + Maira's sign positive; no deformity, no skin erythema, no ecchymosis, no valgus laxity, no varus laxity, anterior drawer test negative, Ham's sign negative and pivot shift test negative Principal Diagnosis Left Knee Osteoarthritis Discharge Data Allergies Allergy/AdvReac Type Severity Reaction Status Date / Time No Known Allergies Allergy Verified 05/03/22 06:54 Consultations 04/29/22 11:53 Consult Hospitalist Routine Procedures Performed Operation Date: 05/03/22 08:25 Actual Procedures p Left Total Knee Arthroplasty(Left) - Ad Parker DO Ordered Studies 05/03/22 05:00 US - OR guided needle placemen Routine Hospital Course (1) Arthritis of knee, left: Patient:SHANON SULLIVAN Admit Date:05/03/22 MR#:[id number] Att Phy:Ad Parker,D.OJam Acct ID:[id number] Katie Phy:Vinnie Alexander DO Date:1955 Fam Phy: Age:67 Location:3E Sex:F Room/Bed:E3211 cc: ~ *NOTICE TO RECEIVING REPUBLICAN/AGENCY This information is strictly Confidential and protected under [place] law. [place] law prohibits you from making any further disclosure of this information unless further disclosure is expressly permitted by the written consent of the person to whom it pertains or is authorized by law. A general authorization for the release of medical or other information is not sufficient for this purpose. Hospital accepts no responsibility if the information is made available to any other person, INCLUDING THE PATIENT. Date of Service May 04, 2022 Assessment & Plan (1) Arthritis of knee, left: Plan: Postop day 1 status post left total knee arthroplasty PT/OT protocols. Weightbearing as tolerated. DVT prophylaxis-aspirin p.o. twice daily, SCDs, YOVANY baldwin. Pain management as written. DC planning-patient is planning for home health services upon discharge. Patient progressed well with her physical therapy. Vital signs remaining stable. Plan for discharge to home today. Admission and Anticipated Discharge Date Admission Date: May 03, 2022 Subjective Postop day 1 Patient lying in bed awake and alert. No complaints this morning. Pain is controlled. Denies shortness of breath, chest pain, lightheadedness. Physical Exam Physical Exam: Dressings clean, dry, and intact. Calves are soft and nontender. Neurovascular is intact. Toes are mobile. She has good dorsiflexion and plantarflexion of the foot. Results & Data ([facility] [place]) Vital Signs (Past 12 Hours) Vital Signs Temp Pulse PulseA Resp BP Pulse Ox O2 Del Method 05/04/22 11:50 37 C 70 85 18 108/64 97 05/04/22 11:11 37 C 70 18 108/64 97 Room Air 05/04/22 07:29 36.8 C 85 17 105/63 100 Nasal Cannula 05/04/22 03:48 36.9 C 80 16 98/59 L 98 Nasal Cannula O2 Flow Rate 05/04/22 11:50 05/04/22 11:11 05/04/22 07:29 2 C 05/04/22 03:48 2 Laboratory Results Laboratory Results WBC 16.13 K/ul (4.8-10.8) H 05/04/22 06:56 RBC 3.61 M/uL (3.93-5.22) L 05/04/22 06:56 Hgb 10.5 g/dl (12.0-16.0) L 05/04/22 06:56 Hct 31.5 % (34.1-44.9) L 05/04/22 06:56 MCV 87.3 fL (80.0-100.0) 05/04/22 06:56 MCH 29.1 pg (25.0-34.0) 05/04/22 06:56 MCHC 33.3 g/dL (32.0-36.0) 05/04/22 06:56 RDW Std Deviation 38.5 fL (36.4-46.3) 05/04/22 06:56 RDW Coeff of Alexa 11.9 % (11.5-14.5) 05/04/22 06:56 Plt Count 257 K/uL (130-400) 05/04/22 06:56 MPV 8.8 fL (9.4-12.3) L 05/04/22 06:56 Sodium 137 mmol/L (136-145) 05/04/22 06:56 Potassium 3.5 mmol/L (3.5-5.1) 05/04/22 06:56 Chloride 103 mmol/L (98-107) 05/04/22 06:56 Carbon Dioxide 29 mmol/L (21-32) 05/04/22 06:56 D Anion Gap 5 (3-11) 05/04/22 06:56 BUN 13 mg/dl (6-23) 05/04/22 06:56 Creatinine 0.68 mg/dl (0.6-1.2) 05/04/22 06:56 Est Cr Clr Drug Dosing 65.2 ml/min 05/04/22 06:56 Est GFR ( Amer) 106.4 ml/min 05/04/22 06:56 Est GFR (Non-Af Amer) 91.8 ml/min 05/04/22 06:56 BUN/Creatinine Ratio 19.1 (10-20) 05/04/22 06:56 Glucose 152 mg/dl (70-99(Fasting)) H 05/04/22 06:56 Calcium 8.5 mg/dl (8.5-10.1) 05/04/22 06:56 Impressions Knee X-Ray 05/03/22 10:13 TWO VIEWS LEFT KNEE CLINICAL HISTORY: Postoperative examination. FINDINGS: AP and crosstable lateral portable views of the left knee are obtained. A left knee arthroplasty is in near anatomic alignment. There has been undersurface remodeling of the patella. No acute fracture is seen. There are expected postoperative changes around the knee including a surgical drain, soft tissue edema, and subcutaneous gas. IMPRESSION: Expected postoperative changes status post left knee arthroplasty. No acute fracture is seen. ACT 112: Negative or not required by law. Electronically signed by: Phil Ross M.D. 05/03/2022 10:36 AM Total Time Total Time Spent Total Time Spent (In Minutes): 5 Discharge Plan Discharge Items Patient Disposition: Home - Home Health Services Reason For Visit: Primary Osteoarthritis of Both Knee Discharge Diagnosis: Osteoarthritis left knee Activity: Per Instructions section Weightbearing Comment: As tolerated with a walker Non-emergency contact: Surgeon Call non-emergency contact if: you have any medication questions, your pain is not controlled, your temperature is above 101.5, your wound has increased redness and your wound has increased drainage Follow-up/Referrals: [facility] [Outside] (as per surgeon's office ) [facility] [Outside] (as per surgeon's office ) Ad Parker DO [Surgeon] - 05/17/22 11:10 am (Follow-up with Dr. Parker in 2 weeks from the day of your surgery for your first postoperative visit.) Vinnie Alexander DO [Primary Care Provider] - 05/12/22 8:30 am (APPT WITH JULIA GRIMM CRNP) Diet: Regular Addtl Attending Provider Instructions: Your medications have been sent to your pharmacy prior to your surgery. He may pick them up either prior to or after your surgery. Medicines include a narcotic pain medication, aspirin, Tylenol, a stool softener or stimulant, and or possibly an antibiotic. Please call the office with any questions about your medications. Home health services will change her dressing and discontinue her Hemovac drain by her second postoperative day. ACTIVITY RECOMMENDATIONS: SELF CARE INSTRUCTIONS AFTER TOTAL KNEE REPLACEMENT A. You may need to continue a physical therapy program after discharge from the hospital. There are several options available to you. Your doctor will assist you in selecting the best one for you. 1. An out-patient facility 2 to 3 times a week for therapy or home therapy. 2. Continue working on all exercises taught to you in the hospital. Your goals should be to increase bending of your knee to 90 degrees and beyond and to fully straighten your knee. B. You may progress at your own pace from walking with a walker or crutches to a cane; then to no assistive devices. C. Make walking a part of your daily routine. Be up as much as comfortable w ith rest periods throughout the day. Rest with leg elevation is very important. Use the ice wrap frequently for the first 3-4 weeks. D. There are no restrictions on activities. You may ride in a car, shop, participate in sr. vendor management associate and all social activities. E. Wear the long elastic stockings (YOVANY hose) 20 hours a day for 2 weeks after surgery. They can be removed several times a day for laundering and for a bath. F. You may shower, no tub baths until cleared by your doctor. SPECIAL CARE INSTRUCTIONS: VERY IMPORTANT TO READ AND REVIEW A. There are a few signs you need to watch for after you are home. Call [facility] if you notice any of the followin. Increased severe knee pain. Some pain is expected especially when you exercise. 2. Increased swelling in your leg or knee; pain or swelling of the calf muscle in either lower leg. 3. Any fluid drainage from the incision. 4. Shortness of breath or chest pain. B. Please call [facility] at if you have any concerns or questions about your operation or recovery. The doctor or his nurse will return your call promptly. C. You must take antibiotics before dental work, bladder, bowel or other surgery. Your doctor will provide you with a permanent care to carry describing this precaution. IMPORTANT: * REMEMBER TO TAKE ASPIRIN, 81 MG, TWICE DAILY FOR 4 WEEKS UNLESS OTHERWISE DIR ECTED. THIS IS YOUR BLOOD THINNER. * HIGH RISK PATIENTS MAY BE PRESCRIBED A STRONGER BLOOD THINNER. THIS WILL BE PROVIDED AT DISCHARGE. * CALL IF INCREASED PAIN, REDNESS, DRAINAGE OR FEVER GREATER THAT 101. * WEAR YOVANY HOSE 20 HOURS PER DAY FOR 2 WEEKS. * AUDIE Dressing - This is a large suction dressing covering your incision. This will help pull any excess drainage from the wound and allow your incision to heal properly. You may shower with this if you can keep the unit outside of the shower. If any bleeding or leakage is noted please call your doctor's offic e. This will remain on your incision for 7 days and then should be removed. This can be done yourself or by the home nursing staff if applicable. The entire unit is disposable once removed. Once removed, keep incision clean and dry. If redness or drainage is noted, please call your surgeon. . *DERMABOND Prineo- This is a mesh tape dressing that is covered with glue. It should remain in place until the incision is properly healed, usually 10-14 days. This dressing is designed to naturally slough off. You may trim the excess mesh tape as it peels off. Incision may be briefly wet in a shower. Dry immediately by blotting with a clean, dry towel. Do not bath or swim until instructed by your doctor. Do not scratch, rub, or pick at the dressing. Do not apply any topical ointments or lotions until dressing is completely removed and/or instructed by your doctor. There may be a small piece of suture material at one end of your incision. Do not pull or trim this. If it is bothersome or catching on clothing, you may cover it with a band-aid. FOLLOW UP VISIT: If appointment is not already scheduled: Please call [facility] to make a follow-up appointment for 2 weeks after your surgery at . Pending Studies at Discharge: No Stand-Alone Forms: Anesthesia/Sedation, Adult, [facility] Medications and DC Order Prescriptions: Continued multivitamin Tablet 1 tab PO QAM celecoxib [Celebrex] 200 mg Capsule 200 mg PO HS sulfasalazine 500 mg Tablet 2,000 mg PO BID Rx Instructions: give with food (meal/snack) clonazepam [Klonopin] 0.5 mg Tablet 1 mg PO HS simvastatin 10 mg Tablet 10 mg PO HS levothyroxine 75 mcg Tablet 75 mcg PO QAM omeprazole 20 mg Capsule,Delayed Release(Dr/Ec) 20 mg PO QAM methylphenidate HCl 15 mg Cap,Er Sprinkle,Biphasic 40-60 15 mg PO BID cholecalciferol (vitamin D3) [Vitamin D3] 50 mcg (2,000 unit) Tablet 6,000 unit PO QAM venlafaxine 225 mg Tablet Extended Release 24hr 225 mg PO QAM Discontinued aspirin 81 mg Capsule 81 mg PO Q OTHER DAY Label Comments: takes in the am Discharge Orders: Discharge Order (Routine); Ordered 05/04/22 Ordered By: Bruno Priest/Other Patient Handouts: DVT Post Op Prevention Admission Data Admit Date/Time: 05/03/22 15:23 Attending Provider: Ad Parker Admit Provider: Ad Parker Primary Care Provider: Vinnie Alexander Other Providers: Brandon Lee Thomas E. Other Interventions: Discharge Summary Assessment (RN) Last Done: 05/04/22 11:50
== END 2022-05-04 12:18 | disposition home health service (06) ==
LOC: ASU 06:24 → 3E 06:24
DX: M45.9 Ankylosing spondylitis of unspecified sites in spine; K21.9 Gastro-esophageal reflux disease without esophagitis; Z86.16 Personal history of COVID-19; M17.12 Unilateral primary osteoarthritis, left knee; Z93.2 Ileostomy status; E78.5 Hyperlipidemia, unspecified; Z79.890 Hormone replacement therapy; Z79.899 Other long term (current) drug therapy; R11.0 Nausea; Z87.891 Personal history of nicotine dependence; F32.A Depression, unspecified; E03.9 Hypothyroidism, unspecified